=== PATIENT | female | born 1955 | race Caucasian/White ===

== ENCOUNTER 2017-02-03 22:23 | Observation (INO) | payer OTHER ==
[2017-02-03 22:29] VITALS: BMI 23.3
[2017-02-04 00:39] LABS: BASOPHIL 0.4 % (0-2.0); EOSINOPHIL 1.5 % (0-4.5); MCH 30.8 pg (25.7-33.7); MCHC 33.5 g/dl (32.0-36.0); MEAN PLT VOLUME 9.2 fl (7.5-11.1); NEUTROPHILS 52.1 % (42.8-82.8); PLATELET COUNT 154 K/MM3 (134-434); RDW 13.1 % (11.6-15.6); WHITE BLOOD COUNT 4.9 K/mm3 (4.0-10.0)
--- NOTE | 2017-02-04 00:42 | PDOC ---
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 Pt states that she leaned against the wall and held onto it. Her vision went black, but she did not collapse to the floor. Never had full LOC. Pt states that her vision returned after a few seconds. Was able to ambulate to nursing station. Now complains of mild headache. Denies CP/ SOB. Denies palpitations. Denies lightheadedness. Pt states that since this episode, which occurred at 10PM, she began to notice numbness in her left arm with some weakness in her hand. Denies numbness/ weakness in her RUE or legs. Denies neck pain. PCP: Dr. Marshall " Past History - Past Medical History Allergies/Adverse Reactions: Allergies Allergy/AdvReac Type Severity Reaction Status Date / Time No Known Allergies Allergy Verified 02/03/17 22:26 Home Medications: Ambulatory Orders NK [No Known Home Medication] 02/04/17 - Family Disease History Family Disease History: Diabetes: Father - Immunization History Immunization Up to Date: Yes (FLU 13-14) - Psycho/Social/Smoking Cessation Hx Anxiety: No Suicidal Ideation: No Smoking History: Never smoked Have you smoked in the past 12 months: No Number of Cigarettes Smoked Daily: 0 Information on smoking cessation initiated: No Hx Alcohol Use: No Substance Use Type: None Neuro Specific PMHX - Complaint Specific PMHX Glaucoma: No Herniated Disk: No Laminectomy: No Migraine: No Multiple Sclerosis: No Neuropathy: No TIA: No Review of Systems - Review of Systems Comments:: 02/04/17 01:07 "GENERAL/CONSTITUTIONAL: No fever or chills. No weakness. HEAD, EYES, EARS, NOSE AND THROAT: No change in vision. No ear pain or discharge. No sore throat. CARDIOVASCULAR: No chest pain or shortness of breath. RESPIRATORY: No cough, wheezing, or hemoptysis. GASTROINTESTINAL: No nausea, vomiting, diarrhea or constipation. GENITOURINARY: No dysuria, frequency, or change in urination. MUSCULOSKELETAL: No joint or muscle swelling or pain. No neck or back pain. SKIN: No rash NEUROLOGIC: +headache, decreased strength and sensation of LUE. No loss of consciousness. ALLERGIC/IMMUNOLOGIC: No hives or skin allergy. " *Physical Exam - Vital Signs Last Vital Signs Temp Pulse Resp BP Pulse Ox 97.7 F 74 18 150/78 99 02/03/17 22:26 02/03/17 22:26 02/03/17 22:26 02/03/17 22:26 02/03/17 22:26 - Physical Exam Comments: 02/04/17 01:08 "GENERAL: Awake, alert, and fully oriented, in no acute distress HEAD: No signs of trauma EYES: PERRLA, EOMI, sclera anicteric, conjunctiva clear ENT: Auricles normal inspection, hearing grossly normal, nares patent, oropharynx clear without exudates. Moist mucosa NECK: paraspinal TTP, no midline tenderness, no stepoffs, Normal ROM, supple, no lymphadenopathy, JVD, or masses LUNGS: Breath sounds equal, clear to auscultation bilaterally. No wheezes, and no crackles HEART: Regular rate and rhythm, normal S1 and S2, no murmurs, rubs or gallops ABDOMEN: Soft, nontender, normoactive bowel sounds. No guarding, no rebound. No masses EXTREMITIES: Normal range of motion, no edema. No clubbing or cyanosis. No cords, erythema, or tenderness NEUROLOGICAL: Cranial nerves II through XII intact. no pronator drift, 4/5 strength in LUE, diminished sensation in LUE extending from hand to elbow, 5/5 strength and sensation in all other extremities, normal gait, normal tandem gait , cerebellar function intact, normal speech SKIN: Warm, Dry, normal turgor, no rashes or lesions noted. " NIH Stroke Scale - Last Known Well Date/Time & Onset Date Last Known Well: 02/03/17 Time Last Known Well: 22:00 - Initial Evaluation Level of consciousness: Alert Ask patient the month and their age: Answers both correctly Ask patient to open & close eyes; make fist and let go: Obeys both correctly Best gaze (horizontal eye movement): Normal Visual field testing: No visual field loss Facial paresis (Show teeth/raise eyebrows/close eyes tight): Normal symmetrical movement Motor Function: Left Arm: Normal Motor Function: Right Arm: Normal (extends arm 90 (or 45) degrees for 10 seconds without drift Motor Function: Left Leg: Normal (extends leg 30 degrees for 5 seconds without drift) Motor Function: Right Leg: Normal (extends leg 30 degrees for 5 seconds without drift) Limb Ataxia: No ataxia Sensory(Use pinprick test arms,legs,trunk,face/side to side): Mild to moderate decrease in sensation Best language (Describe picture, name items, read sentences): No Aphasia Dysarthria (read several words): Normal articulation Extinction and Inattention: No abnormality - Total Score NIH Stroke Scale Score: 1 Heart Score/ECG Review - ECG Impressions Comment:: 02/04/17 00:52 NSR, no KSENIA/STDs, no TWIs, intervals wnl, axis wnl, rate 67 Critical Care Time/MDM Note - Medical Decision Making Note: 02/04/17 01:10 61 F with near-syncope, now with LUE weakness and numbness. Will work up for CVA given new deficits. More likely a cervical radiculopathy. Also consider ACS given near-syncope, though EKG is nonischemic. - Code fine activated - CTH - Labs, trop 02/04/17 01:[address] Armstrong. Agrees CVA is unlikely, but recommends admission to hospitalist for further work up.
[2017-02-04 00:58] LABS: INR 1.04 (0.82-1.09); PROTHROMBIN TIME (PATIENT) 11.5 SEC (9.98-11.88)
[2017-02-04] MEDS ORDERED: ASPIRIN 325 MG TABLET PO ONE (00:58)
[2017-02-04] MEDS ORDERED: ATORVASTATIN CA 80 MG TABLET (FP) PO ONE (01:01)
[2017-02-04 01:11] LABS: CREATININE 0.7 mg/dL (0.55-1.02)
[2017-02-04 01:14] LABS: ALK PHOS 39 U/L (45-117); CPK 110 IU/L (26-192); TROPONIN I < 0.02 ng/ml (0.00-0.05)
[2017-02-04] MEDS ORDERED: ATORVASTATIN CA 80 MG TABLET (FP) ONE (01:14)
[2017-02-04] MEDS ORDERED: ASPIRIN 325 MG TABLET ONE (01:14)
[2017-02-04 01:15] LABS: ANION GAP 9 (8-16); BILIRUBIN,TOTAL 0.9 mg/dL (0.2-1.0); CHOLESTEROL 225 mg/dL (50-200); CO2 30 mmol/L (21-32); GLUCOSE,RANDOM 80 mg/dL (74-106); SGOT/AST 22 U/L (15-37); SGPT/ALT 29 U/L (12-78); TOT PROT 6.4 g/dl (6.4-8.2)
[2017-02-04] MEDS: SODIUM CHLORIDE 1,000 ML IV SCH (01:18)
[2017-02-04 01:31] LABS: URINE APPEARANCE CLEAR; URINE BILIRUBIN NEGATIVE (NEGATIVE); URINE BLOOD NEGATIVE (NEGATIVE); URINE COLOR LTYELLOW; URINE GLUCOSE (UA) NEGATIVE (NEGATIVE); URINE KETONE TRACE (NEGATIVE); URINE LEUK ESTERASE TRACE (NEGATIVE); URINE NITRITE NEGATIVE (NEGATIVE); URINE PROTEIN NEGATIVE (NEGATIVE); URINE UROBILINOGEN NEGATIVE mg/dL (0.2-1.0)
[2017-02-04 01:34] LABS: URINE BACTERIA RARE /hpf (NONE SEEN); URINE MUCUS RARE; URINE WBC <1 /hpf (3-5)
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
--- NOTE | 2017-02-04 03:03 | PN ---
Teaching Attending Note Name of Resident: Karen Gale ATTENDING PHYSICIAN STATEMENT I saw and evaluated the patient. I reviewed the resident's note and discussed the case with the resident. I agree with the resident's findings and plan as documented. SUBJECTIVE: 61 yo F with no pmhx who presented with lightheadedness and temporary blindess for several seconds OBJECTIVE: Physical: VS: Vital Signs Period Temp Pulse Resp BP Sys/Duran Pulse Ox Last 24 Hr 97.7 F 74 18 150/78 99-99 GEN: NAd, Resting in bed HEENT: NCAT, PERRL, Throat without erythema or exudates CARD: RRR S1, S2 RESP: CTAB ABD: BSX4 EXT: - C/C/E, +4/5 MS LUE, +4/5 LLE, +5/5 RU and RLE Neuro: CN II- XII intact, MS as above CBCD WBC 4.9 K/mm3 (4.0-10.0) 02/04/17 00:31 RBC 4.47 M/mm3 (3.60-5.2) 02/04/17 00:31 Hgb 13.8 GM/dL (10.7-15.3) 02/04/17 00:31 Hct 41.1 % (32.4-45.2) 02/04/17 00:31 MCV 92.0 fl (80-96) 02/04/17 00:31 MCHC 33.5 g/dl (32.0-36.0) 02/04/17 00:31 RDW 13.1 % (11.6-15.6) 02/04/17 00:31 Plt Count 154 K/MM3 (134-434) 02/04/17 00:31 MPV 9.2 fl (7.5-11.1) 02/04/17 00:31 CMP Sodium 141 mmol/L (136-145) 02/04/17 00:31 Potassium 3.7 mmol/L (3.5-5.1) 02/04/17 00:31 Chloride 102 mmol/L (98-107) 02/04/17 00:31 Carbon Dioxide 30 mmol/L (21-32) 02/04/17 00:31 Anion Gap 9 (8-16) 02/04/17 00:31 BUN 17 mg/dL (7-18) 02/04/17 00:31 Creatinine 0.7 mg/dL (0.55-1.02) D 02/04/17 00:31 Creat Clearance w eGFR > 60 (>60) 02/04/17 00:31 Random Glucose 80 mg/dL (74-106) 02/04/17 00:31 Calcium 9.0 mg/dL (8.5-10.1) 02/04/17 00:31 Total Bilirubin 0.9 mg/dL (0.2-1.0) D 02/04/17 00:31 AST 22 U/L (15-37) D 02/04/17 00:31 ALT 29 U/L (12-78) 02/04/17 00:31 Alkaline Phosphatase 39 U/L (45-117) L 02/04/17 00:31 Total Protein 6.4 g/dl (6.4-8.2) 02/04/17 00:31 Albumin 4.0 g/dl (3.4-5.0) 02/04/17 00:31 CARDIAC ENZYMES Creatine Kinase 110 IU/L (26-192) 02/04/17 00:31 Troponin I < 0.02 ng/ml (0.00-0.05) 02/04/17 00:31 CT HEAD- Negative ASSESSMENT AND PLAN: 61 yo no pmhx presents with lighheadedness, dizziness, and pre-syncope 1.) CVA/TIA - Ortho VS - TSH - MRI BRAIN/MRA wo con - Echo/Carotid US - Statin, Lipid panel, A1c - Asa - Neuro Consult - CT HEA negative - EKG/Trop - Rest as per resident note, Place in Stroke Tele
[2017-02-04 04:13] LABS: LDL CHOLESTEROL (ONLY SJRH) 133 mg/dL (5-100)
[2017-02-04 08:06] LABS: MCH 31.6 pg (25.7-33.7); MCHC 34.2 g/dl (32.0-36.0); MEAN CELL VOLUME 92.5 fl (80-96); MEAN PLT VOLUME 9.3 fl (7.5-11.1); PLATELET COUNT 157 K/MM3 (134-434); RDW 13.2 % (11.6-15.6); WHITE BLOOD COUNT 3.6 K/mm3 (4.0-10.0)
[2017-02-04 09:10] LABS: ANION GAP 6 (8-16); CALCIUM 8.7 mg/dL (8.5-10.1); CO2 30 mmol/L (21-32); CREATININE 0.6 mg/dL (0.55-1.02); GLUCOSE,RANDOM 80 mg/dL (74-106); THYROID STIMULATING HORMONE 1.35 uIU/ml (0.358-3.74); TROPONIN I < 0.02 ng/ml (0.00-0.05)
[2017-02-04] MEDS: ASPIRIN COATED 81 MG TABLET.EC PO SCH (10:35)
--- NOTE | 2017-02-04 11:07 | EKG ---
Test Reason : Blood Pressure : / mmHG Vent. Rate : 067 BPM Atrial Rate : 067 BPM P-R Int : 132 ms QRS Dur : 084 ms QT Int : 428 ms P-R-T Axes : 051 012 029 degrees QTc Int : 452 ms NORMAL SINUS RHYTHM NORMAL ECG WHEN COMPARED WITH ECG OF 03-JUL-2013 00:37, T WAVE VARIATION Confirmed by SARIKA DUARTE MD ([id number]) on 02/04/2017 11:07:04 AM Referred By: Confirmed By:SARIKA DUARTE MD
[2017-02-04] MEDS: ACETAMINOPHEN 325 MG TABLET (FP) PO PRN ×2 (13:56→20:43)
--- NOTE | 2017-02-04 16:11 | CON.NEURO ---
Consult Consult Specialty:: Neurology-Lev Reason for Consultation:: TIA - History of Present Illness Chief Complaint: Dizziness History of Present Illness: 61yo F with no significant PMH presents c/o near syncope with Left UE weakness. 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 She reports diaphoresis, chills, vision darkening for a few seconds and mild headache at time of the incident. She did not lose consciousness. Her vision returned after a few seconds and she was able to walk to the nursing station to report the event. In addition at time of event reports she had intense left face/arm/leg nimbness and tingling lasting minutes, it has now mostly subsided and numbness remains in left face and hand. Has vague c/o "weakness " left leg and arm" lasting minutes too and veering to the right when ambulating last night, both have resolved. She denies diplopia. Pt has never had symptoms like these before. Pt denies chest pain/pressure, dyspnea, SOB, neck pain. No hx. of headaches/miscarriages. - History Source History Provided By: Patient Limitations to Obtaining History: No Limitations - Alcohol/Substance Use Hx Alcohol Use: No - Smoking History Smoking history: Never smoked Have you smoked in the past 12 months: No Aproximately how many cigarettes per day: 0 Home Medications - Allergies Allergies/Adverse Reactions: Allergies Allergy/AdvReac Type Severity Reaction Status Date / Time No Known Allergies Allergy Verified 02/03/17 22:26 - Home Medications Home Medications: Ambulatory Orders NK [No Known Home Medication] 02/04/17 Review of Systems - Review of Systems Neurological: reports: Numbness, Parasthesia, Syncope (Pre-syncope), Unsteady Gait, Weakness Physical Exam-Neuro Vital Signs: Vital Signs Temperature 98.0 F 02/04/17 14:00 Pulse Rate 62 02/04/17 14:00 Respiratory Rate 18 02/04/17 14:00 Blood Pressure 108/65 02/04/17 14:00 O2 Sat by Pulse Oximetry (%) 100 02/04/17 13:20 Labs: CBC, BMP 02/04/17 07:55 02/04/17 07:55 INR, PTT INR 1.04 (0.82-1.09) 02/04/17 00:31 - Neuro Exam Dominant Hand: Right Mini Mental Exam: Intact STM/Attention/Concentration Cranial Nerves II-XII Intact: No (Diminished touch/pin left face mainly forehead ) DTR's: 2+ Left Bicep, 2+ Right Bicep, 2+ Left Tricep, 2+ Right Tricep, 2+ Left Brachioradialis, 2+ Right Brachioradialis, 2+ Left Achilles, 2+ Right Achilles Response to light touch: Abnormal Response to pain prick: Abnormal (Pt. 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 without vascular risk factors(except hyperlipidemia on this admission), now presents with what appears to be a post. circulation ischemic event given near syncope, vertigo, gait ataxia, and o/e left mild dysmetria and sensory findings. Doubt vertebral dissection, likely due to fall in intraarterial pressure. Suggest: 1) MRI/MRA brain 2) Card. consult-Echo, she is being monitored. 3) Carotid doppler/TCD. 4) Cont. ASA 81mg daily. Thank you, will follow. Kasey Ohara MD [phone]
[2017-02-04] MEDS: ATORVASTATIN CA 80 MG TABLET (FP) PO SCH (22:33)
[2017-02-05] MEDS: ACETAMINOPHEN 325 MG TABLET (FP) PO PRN ×3 (06:48→21:46)
[2017-02-05] MEDS: SODIUM CHLORIDE 1,000 ML IV SCH (06:49)
--- NOTE | 2017-02-05 08:43 | PN ---
Progress Note (short form) - Note Progress Note: NEUROLOGY PROGRESS NOTE-TG PELAYO Pt. today reports she is better, c/o only patchy left face and arm numbness. Had mild headache last night, well treated with Tylenol. Exam- only diminished left face/arm patchy diminished touch. MRI brain and MRA brain/neck without sig. abnormalities reported. Pt. appears to have an ischemic event clinically.Would cont. ASA 81mg daily. She will f/u in my [place] office next week saturday, pt. to call for appt. Thank you, Kasey Ohara MD
[2017-02-05] MEDS: ASPIRIN COATED 81 MG TABLET.EC PO SCH (09:25)
--- NOTE | 2017-02-05 13:13 | EKG ---
Test Reason : Blood Pressure : / mmHG Vent. Rate : 059 BPM Atrial Rate : 059 BPM P-R Int : 120 ms QRS Dur : 084 ms QT Int : 454 ms P-R-T Axes : 052 018 029 degrees QTc Int : 449 ms SINUS BRADYCARDIA WITH RARE ATRIAL PREMATURE BEATS. LEFT ATRIAL AENLARGEMENT WHEN COMPARED WITH ECG OF 03-FEB-2017 22:44, APPEARANCE OF APCs REPEAT EKG IF CLINICALLY INDICATED Confirmed by CURT WAITE MD ([id number]) on 02/05/2017 1:13:11 PM Referred By: Confirmed By:CURT WAITE MD
--- NOTE | 2017-02-05 18:32 | PN ---
Physical Exam: SUBJECTIVE: Patient seen and examined in the ICU. She continues to report left sided weakness especially with ambulation. Reports some "tingling" to her left arm and left foot weak and this concerns her. Also reports a headache that is relieved with Tylenol. She denies any swallowing issues, denies visual defect or dizziness with ambulation. She is asking for us to arrange outpatient rehab for her. Her significant other is in the room and is willing to drive her back and forth to rehab. OBJECTIVE: No facial droop, speech is clear, in no acute distress Will need physical therapy evaluation in a.m. Patient asking for outpatient physical therapy Neuro notes reviewed Vital Signs Period Temp Pulse Resp BP Sys/Duran Pulse Ox Last 24 Hr 98 F-98.8 F 55-66 13-18 94-124/60-70 100-100 GENERAL: The patient is awake, alert, and fully oriented, in no acute distress. reports intermittent headaches relieved with Tylenol HEAD: Normal with no signs of trauma, no facial droop EYES: PERRL, extraocular movements intact, sclera anicteric, conjunctiva clear. No ptosis. ENT: Ears normal, nares patent, oropharynx clear without exudates, moist mucous membranes. NECK: Trachea midline, full range of motion, supple. HEART: Regular rate and rhythm, S1, S2 without murmur, rub or gallop. ABDOMEN: Soft, nontender, nondistended, normoactive bowel sounds, no guarding, no rebound, no hepatosplenomegaly, no masses. EXTREMITIES: 2+ pulses, warm, well-perfused, no edema. NEUROLOGICAL: Normal speech, Patient reports left sided weakness with ambulation , LUE 4/5, RUE 5/5, LLE 4/5, RLE 5/5. PSYCH: Normal mood, normal affect. 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 She was admitted after she reported she felt dizzy/lightheaded with a few seconds of vertigo while working. As per ED notes, she reported diaphoresis, chills, vision darkening for a few seconds and mild headache at time of the incident. She did not lose consciousness. In addition at time of event reports she had intense left face/arm/leg numbness and tingling lasting minutes, it has now mostly subsided and numbness intermittently remains in left face, left arm and left leg. On exam, she has feelings of left sided weakness with ambulation which causes her to lean to the right. She denies any blurry vision. She denies chest pain/ pressure, dyspnea, SOB or neck pain. She reports no significant past medical history and is on no home medications. Imagin02/04/2017: Head CT with no evidence of acute territorial ischemic change 02/04/2017: Carotid doppler: mild arth. disease, no evidence of hemodynamic stenosis 02/04/2017: Brain MRI/MRA: unremarkable Neuro: Rule out CVA/TIA A/P: Patient reports left sided weakness with ambulation Head CT with no evidence of acute territorial isch. changes, brain mri unremarkable Lipid panel reviewed, started on Lipitor 80mg daily On ASA 81mg Swallow eval in a.m. Physical therapy to follow Neuro notes reviewed, ischemic event clinically Neuro follow up as an outpatient F.E.N. Fluids: Normal saline @ 42/cc hr Electrolytes: monitor Nutrition: low sodium Prophylaxis: DVT: SCDs bilaterally GI: deferred Disposition: Full Code. Follow up with Neurologist on discharge next week Saturday Visit type - Emergency Visit Emergency Visit: Yes ED Registration Date: 02/04/17 Care time: The patient presented to the Emergency Department on the above date and was hospitalized for further evaluation of their emergent condition. - New Patient This patient is new to me today: Yes Date on this admission: 02/05/17 - Critical Care Critical Care patient: Yes Total Critical Care Time (in minutes): 60 Critical Care Statement: The care of this patient involved high complexity decision making to prevent further life threatening deterioration of the patient 's condition and/or to evaluate & treat vital organ system(s) failure or risk of failure.
[2017-02-05 21:14] VITALS: TEMP 98
[2017-02-05] MEDS: ATORVASTATIN CA 80 MG TABLET (FP) PO SCH (21:44)
[2017-02-06 07:28] LABS: BASOPHIL 0.5 % (0-2.0); EOSINOPHIL 3.9 % (0-4.5); MCH 30.3 pg (25.7-33.7); MCHC 33.1 g/dl (32.0-36.0); MEAN CELL VOLUME 91.7 fl (80-96); MEAN PLT VOLUME 9.2 fl (7.5-11.1); NEUTROPHILS 54.9 % (42.8-82.8); PLATELET COUNT 140 K/MM3 (134-434); RDW 12.9 % (11.6-15.6); WHITE BLOOD COUNT 4.3 K/mm3 (4.0-10.0)
[2017-02-06] MEDS: SODIUM CHLORIDE 1,000 ML IV SCH (08:23)
[2017-02-06 08:24] LABS: ALBUMIN 3.4 g/dl (3.4-5.0); ALK PHOS 37 U/L (45-117); ANION GAP 7 (8-16); BILIRUBIN,TOTAL 0.8 mg/dL (0.2-1.0); CALCIUM 8.4 mg/dL (8.5-10.1); CO2 28 mmol/L (21-32); CREATININE 0.5 mg/dL (0.55-1.02); GLUCOSE,RANDOM 86 mg/dL (74-106); SGOT/AST 14 U/L (15-37); SGPT/ALT 24 U/L (12-78); TOT PROT 5.9 g/dl (6.4-8.2)
[2017-02-06] MEDS: ASPIRIN COATED 81 MG TABLET.EC PO SCH (09:41)
[2017-02-06 09:44] VITALS: BP 132/75; PULSE 78
--- NOTE | 2017-02-06 10:05 | EKG ---
Test Reason : Blood Pressure : / mmHG Vent. Rate : 051 BPM Atrial Rate : 051 BPM P-R Int : 110 ms QRS Dur : 084 ms QT Int : 472 ms P-R-T Axes : 055 021 040 degrees QTc Int : 435 ms SINUS BRADYCARDIA WITH SHORT KS OTHERWISE NORMAL ECG WHEN COMPARED WITH ECG OF 04-FEB-2017 00:42, PREVIOUS ECG HAS UNDETERMINED RHYTHM, NEEDS REVIEW NONSPECIFIC T WAVE ABNORMALITY NO LONGER EVIDENT IN ANTERIOR LEADS Confirmed by SHERRELL MIDDLETON MD ([id number]) on 02/06/2017 10:05:07 AM Referred By: Jordi OLIVARES Confirmed By:SHERRELL MIDDLETON MD
--- NOTE | 2017-02-06 10:54 | CONSULT ---
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 She was admitted after she reported she felt dizzy/lightheaded with a few seconds of vertigo while working. As per ED notes, she reported diaphoresis, chills, vision darkening for a few seconds and mild headache at time of the incident. She did not lose consciousness. In addition at time of event reports she had intense left face/arm/leg numbness and tingling lasting minutes, it has now mostly subsided and numbness intermittently remains in left face, left arm and left leg. She reported to me slurred speech during onset of symptoms,but no drooling or swallowing symptoms. She continues to report feelings of left sided weakness with ambulation which causes her to lean to the right and tingling in her left fingers and leg tingling/weakness.. History Source: Patient, Medical Record Limitations to Obtaining History: No Limitations - Smoking History Smoking history: Never smoked Have you smoked in the past 12 months: No Aproximately how many cigarettes per day: 0 - Alcohol/Substance Use Hx Alcohol Use: No History - Admission Reason For Visit: NEUROLOGICAL PROBLEM (EMPLOYEE) - Diagnostics X-ray: Report Reviewed CT Scan: Report Reviewed MRI: Report Reviewed - General Mental Status: Alert and Oriented, Awake and Alert, Able to Follow Commands Attention: Intact Ability to Follow Directions: Excellent Head/Neck Control: WFL - Hearing Hearing: Normal Speech Evaluation - Communication Primary Language: J[place] Secondary Language: SOUTH KOREAN (fluent) Communication: Yes: Within Normal Limits Oral Expression Ability: Yes: No Impairment - Speech Production Able to Make Needs Known: Yes: WNL Intelligibility: Yes: WNL - Speech Characteristics Voice Loudness: Normal Voice Pitch: Yes: Normal Voice Phonatory-based Quality: Yes: Normal, Hoarse (slight) Speech Pattern: Normal Speech Clarity: < 100% Nasal Resonance: Normal Articulation: Yes: Precise - Language/Auditory Comprehension Follows: Yes: 2 Stage Simple Commands - Language/Verbal Expression Able to Respond to Simple Queries: Yes: WNL Able to Communicate Wants and Needs: Yes: WNL Functional Communication Status: Yes: WNL - Memory/Perception shelter Memory: Yes: WNL Short Term Memory: Yes: WNL - Swallow Evaluation/Bedside Assessment Current Nutritional Intake: Regular, Thin Liquids Oral Secretions: Yes: WFL Dentition: Yes: Adequate Facial Symmetry at Rest: Symmetrical (possibly slight left weakness at rest) Facial Symmetry on Retraction: Symmetrical Facial Movement: Controlled Sensation: Normal (spontaneous recovery of facial tingling) Against Resistance Opening: Normal Against Resistance Closing: Normal Pucker Lips: Normal Smile: Normal Lingual Movement: Normal, Symmetric Lingual Speed of Movement: Normal Lingual Movement Strgth Against Opposition: Normal Lingual Movement Characteristics: Normal Soft Palate Description: Normal Color, Normal Symmetry Hard Palate Description: Normal Color, Normal Symmetry Velopharyngeal Movement: Normal Laryngeal Elevation: WFL Laryngeal Movement: Able to Palpate Rate of Intake: WFL Bolus Size: WFL Labial Seal: WFL Chewing: WFL Oral Prep Time: WFL A-P Transit: WFL Pocketing: None Timing of Swallow: WFL Coughing/Throat Clear: No Change in Voice: No Recommendations - Speech Evaluation, Impression/Plan Impression: Speech production, language, swallowing, cognition intact. She continues to report feelings of left sided weakness with ambulation which causes her to lean to the right and tingling in her left fingers and leg tingling/weakness.. - Dysphagia Impressions/Plan Swallowing Skills: WF Dysphagia Impressions: No Impairment *Silent aspiration: cannot be R/O at bedside - Recommendations Diet Consistency: Regular Medication Administration: Whole with water Liquids: Thin Liquids
--- NOTE | 2017-02-06 13:13 | DS ---
Physical Exam: SUBJECTIVE: Patient seen and examined OBJECTIVE: Vital Signs Period Temp Pulse Resp BP Sys/Duran Pulse Ox Last 24 Hr 98 F-98.2 F 49-78 16-18 94-151/56-95 100-100 PHYSICAL EXAM GENERAL: The patient is awake, alert, and fully oriented, in no acute distress. HEAD: Normal with no signs of trauma. EYES: PERRL, extraocular movements intact, sclera anicteric, conjunctiva clear. ENT: Ears normal, nares patent, oropharynx clear without exudates, moist mucous membranes. NECK: Trachea midline, full range of motion, supple. LUNGS: Breath sounds equal, clear to auscultation bilaterally, no wheezes, no crackles, no accessory muscle use. HEART: Regular rate and rhythm, S1, S2 without murmur, rub or gallop. ABDOMEN: Soft, nontender, nondistended, normoactive bowel sounds, no guarding, no rebound, no hepatosplenomegaly, no masses. EXTREMITIES: 2+ pulses, warm, well-perfused, no edema. NEUROLOGICAL: Cranial nerves II through XII grossly intact. Normal speech, gait not observed. PSYCH: Normal mood, normal affect. SKIN: Warm, dry, normal turgor, no rashes or lesions noted. LABS Laboratory Results - last 24 hr 02/06/17 02/06/17 05:00 06:00 WBC 4.3 RBC 4.50 Hgb 13.6 Hct 41.3 MCV 91.7 MCH 30.3 MCHC 33.1 RDW 12.9 Plt Count 140 MPV 9.2 Neutrophils % 54.9 Lymphocytes % 31.0 Monocytes % 9.7 Eosinophils % 3.9 D Basophils % 0.5 Sodium 143 Potassium 4.0 Chloride 108 H Carbon Dioxide 28 Anion Gap 7 L BUN 11 Creatinine 0.5 L Creat Clearance w eGFR > 60 Random Glucose 86 Calcium 8.4 L Total Bilirubin 0.8 AST 14 L D ALT 24 Alkaline Phosphatase 37 L Total Protein 5.9 L Albumin 3.4 HOSPITAL COURSE: Date of Admission:02/04/17 Date of Discharge: 02/06/17 Discharge Summary Reason For Visit: NEUROLOGICAL PROBLEM (EMPLOYEE) Condition: Improved - Instructions Diet, Activity, Other Instructions: Please return to the ED with new, persistent, or worsening symptoms. Please follow-up with cardiology for a full cardiac workup within 2-3 days. Please follow-up with neurology on 02/12. Physical therapy referral provided. Referrals: Afia Ohara MD [Staff Physician] - (Please follow-up with neurology on ) Doug Gonzalez MD [Staff Physician] - (Please follow-up with cardiology within 2 -3 days) Disposition: HOME - Home Medications Comprehensive Discharge Medication List: Ambulatory Orders Aspirin Coated [Ecotrin -] 81 mg PO DAILY #30 tab 02/06/17 Atorvastatin Ca [Lipitor] 40 mg PO HS #30 tablet 02/06/17 Physical Therapy Order 1 each NR ASDIR #1 order 02/06/17
== END 2017-02-06 13:45 | disposition home or self-care (01) ==
LOC: JER 22:23 → JERBED 02-04 02:05 → INTOOBSV 02-04 02:05 → J2W 02-04 13:20
PROVIDERS: ADMIT Internal Medicine; ATTEND Registered Nurse
DX: R55 Syncope and collapse (principal); R42 Dizziness and giddiness; M62.81 Muscle weakness (generalized)
CPT/HCPCS: 36415; 70450-TC; 70544-TC; 70547-TC; 70551-TC; 71010-TC; 80048; 80053; 81003; 81015; 82465; 82607; 82746; 83036; 83718; 83721; 84443; 84478; 84484; 85025; 85027; 85610; 86850; 86900; 86901; 93005; 93010; 93306-TC; 93880-TC; 97116-GP; 97161-GP; 99285-25; G0378

== ENCOUNTER 2017-05-01 19:29 | Emergency (ER) | payer OTHER ==
[2017-05-01 19:38] VITALS: BP 138/81; PULSE 63; TEMP 97.7; BMI 24.1
--- NOTE | 2017-05-01 20:01 | PDOC ---
History of Present Illness - General Chief Complaint: Injury Stated Complaint: ANKLE INJURY Time Seen by Provider: 05/01/17 19:52 Past History - Past Medical History Allergies/Adverse Reactions: Allergies Allergy/AdvReac Type Severity Reaction Status Date / Time No Known Allergies Allergy Verified 02/03/17 22:26 Home Medications: Ambulatory Orders NK [No Known Home Medication] 05/01/17 COPD: No - Family Disease History Family Disease History: Diabetes: Father - Immunization History Immunization Up to Date: Yes (FLU 13-14) - Suicide/Smoking/Psychosocial Hx Smoking History: Never smoked Have you smoked in the past 12 months: No Number of Cigarettes Smoked Daily: 0 Information on smoking cessation initiated: No Hx Alcohol Use: No Drug/Substance Use Hx: No Substance Use Type: None *Physical Exam - Vital Signs Last Vital Signs Temp Pulse Resp BP Pulse Ox 97.7 F 63 18 138/81 98 05/01/17 19:35 05/01/17 19:35 05/01/17 19:35 05/01/17 19:35 05/01/17 19:35 *DC/Admit/Observation/Transfer Diagnosis at time of Disposition: Left ankle sprain Qualifiers: Encounter type: initial encounter Involved ligament of ankle: unspecified ligament Qualified Code(s): S93.402A - Sprain of unspecified ligament of left ankle, initial encounter - Discharge Dispostion Disposition: HOME Condition at time of disposition: Good Admit: No - Referrals Referrals: Cruz Marshall MD [Primary Care Provider] - Rigoberto Pratt MD [Staff Physician] - - Patient Instructions Printed Discharge Instructions: DI for Ankle Sprain Additional Instructions: You sprained her ankle. Her x-ray was negative for fracture. Please take 800 mg of ibuprofen 3 times a day not to exceed 3000 mg per day. Please ice the ankle for 20 minute periods 5 times a day. Keep the ankle elevated while at rest. Wear the Chai wrap and Aircast for comfort. Please follow-up with orthopedics in 3-5 days if you're ankle symptoms are not improving. Return to the emergency department if you have worsening pain, numbness and tingling in the foot, weakness in the foot, or any changes in your symptoms. - Post Discharge Activity Forms/Work/School Notes: Back to Work
[2017-05-01] MEDS ORDERED: IBUPROFEN 600 MG TABLET (FP) PO ONE ×2 (20:12)
== END 2017-05-01 21:10 | disposition home or self-care (01) ==
LOC: JERFT 19:29
PROC: 2W3RX1Z Immobilization of Left Lower Leg using Splint (ICD-10-PCS; principal; 2017-05-01)
DX: S93.402A Sprain of unspecified ligament of left ankle, initial encounter (principal); X58.XXXA Exposure to other specified factors, initial encounter; Y93.89 Activity, other specified; Y92.89 Other specified places as the place of occurrence of the external cause
CPT/HCPCS: 73610-TC-LT; 73630-TC-LT; 99281-25

== ENCOUNTER 2021-10-22 19:39 | Emergency (ER) | payer OTHER ==
[2021-10-22 19:57] VITALS: BP 138/89; PULSE 78; TEMP 98.6; BMI 27.4
[2021-10-22] MEDS ORDERED: KETOROLAC TROMETHAMINE 30 MG/1 ML VIAL IM ONE (21:17)
[2021-10-22] MEDS ORDERED: KETOROLAC TROMETHAMINE 30 MG/1 ML VIAL ONE (21:47)
== END 2021-10-22 22:42 | disposition home or self-care (01) ==
LOC: JERFT 19:39 → JER 19:39 → JERFT 22:42
DX: S86.912A Strain of unspecified muscle(s) and tendon(s) at lower leg level, left leg, initial encounter (principal); X50.9XXA Other and unspecified overexertion or strenuous movements or postures, initial encounter
CPT/HCPCS: 73562-TC-LT-FY; 99284-25